=== PATIENT | female | born 1985 | race Caucasian/White ===

== ENCOUNTER 2017-12-23 02:49 | Inpatient (IN) | payer BC ==
[2017-12-23] MEDS ORDERED: OXYTOCIN 30 UNITS/LR 500 ML IV ×2 (06:00)
[2017-12-23] MEDS ORDERED: IBUPROFEN 600 MG TAB PO (06:00)
[2017-12-23] MEDS ORDERED: MISOPROSTOL 200 MCG TAB PR (06:00)
[2017-12-23] MEDS ORDERED: LIDOCAINE 1% (MPF) 30 ML INJ INJ (06:00)
[2017-12-23] MEDS ORDERED: CARBOPROST 250 MCG INJ IM (06:00)
[2017-12-23] MEDS ORDERED: BUTORPHANOL 2 MG INJ IV (06:00)
[2017-12-23] MEDS ORDERED: METHYLERGONOVINE 0.2 MG INJ IM (06:00)
[2017-12-23] MEDS: LACTATED RINGER'S 1,000 ML IV* ×4 (06:42→22:40)
[2017-12-23 06:52] LABS: ADD MAN DIFF? NO
[2017-12-23 06:56] LABS: BASOPHIL # 0.1 10^3/ul (0.0-0.1); BASOPHILS % 0.4 % (0.0-2.0); EOSINOPHILS # 0.1 10^3/ul (0.0-0.5); EOSINOPHILS % 0.9 % (0.0-7.0); HEMATOCRIT 39.4 % (37.0-47.0); HEMOGLOBIN 13.2 g/dl (12.0-16.0); LYMPHOCYTES # 1.6 10^3/ul (0.8-2.9); LYMPHOCYTES % 13.1 % (15.0-51.0); MEAN CORPUSCULAR HEMOGLOBIN 29.8 pg (29.0-33.0); MEAN CORPUSCULAR HGB CONC 33.5 g/dl (32.0-37.0); MEAN CORPUSCULAR VOLUME 88.9 fl (82.0-101.0); MEAN PLATELET VOLUME 10.8 fl (7.4-10.4); MONOCYTE # 0.9 10^3/ul (0.3-0.9); MONOCYTES % 7.4 % (0.0-11.0); NEUTROPHIL # 9.5 10^3/ul (1.6-7.5); NEUTROPHILS % 77.8 % (39.0-77.0); PLATELET COUNT 251 10^3/UL (140-415); RED BLOOD COUNT 4.43 10^6/ul (4.20-5.40); RED CELL DISTRIBUTION WIDTH 13.8 % (11.5-14.5)
[2017-12-23 06:56] LABS: WHITE BLOOD COUNT 12.2 10^3/ul (4.8-10.8)
[2017-12-23 07:14] LABS: INR 0.93; PROTIME 12.6 Sec (11.9-14.9)
[2017-12-23 07:15] LABS: PARTIAL THROMBOPLASTIN TIME 26.4 Sec (25.0-35.0)
[2017-12-23 08:06] LABS: HEPATITIS B SURFACE ANTIGEN NEGATIVE (NEGATIVE)
[2017-12-23] MEDS ORDERED: FENTAnyl 2MCG/ML-ROPIV 0.2% 100 ML (18:15)
[2017-12-23] MEDS ORDERED: NALOXONE (0.4 MG/ML) INJ IV (19:00)
[2017-12-23] MEDS: LACTATED RINGER'S 1,000 ML IV (19:10)
[2017-12-23] MEDS: FENTAnyl 2MCG/ML-ROPIV 0.2% 100 ML BAG EPI (19:10)
[2017-12-23 21:33] LABS: RAPID PLASMA REAGIN NONREACTIVE (NR)
[2017-12-24] MEDS: LACTATED RINGER'S 1,000 ML IV* ×2 (02:45→06:25)
[2017-12-24] MEDS: FENTAnyl 2MCG/ML-ROPIV 0.2% 100 ML BAG EPI (02:48)
[2017-12-24] MEDS: ACETAMINOPHEN 500 MG TAB PO (06:46)
[2017-12-24] MEDS ORDERED: EPHEDrine 50 MG INJ (07:00)
[2017-12-24] MEDS ORDERED: CHLOROPROCAINE 3% (MPF) 20 ML INJ (07:00)
[2017-12-24] MEDS ORDERED: OXYTOCIN 30 UNITS/LR 500 ML BAG IV (07:00)
[2017-12-24] MEDS: AMPICILLIN/SULB 3 GM/NS (PMX) 100 ML IVPB (07:41)
[2017-12-24] MEDS: OXYTOCIN 30 UNITS/LR 500 ML IV ×3 (08:30→13:37)
[2017-12-24] MEDS ORDERED: FENTAnyl 50 MCG/ML VIAL (11:07)
[2017-12-24] MEDS ORDERED: morphine SULFATE/PF (10 MG/10 ML) INJ (11:17)
[2017-12-24] MEDS ORDERED: ONDANSETRON 4 MG INJ (11:21)
[2017-12-24] MEDS: LACTATED RINGER'S 1,000 ML IV ×2 (11:35→23:05)
[2017-12-24] MEDS ORDERED: PHENYLephrine (100 MCG/ML) 10ML SYG (11:38)
[2017-12-24] MEDS ORDERED: KETOROLAC 30 MG INJ (11:50)
[2017-12-24] MEDS ORDERED: HYDROmorphONE 1 MG/5 ML IV SYRINGE IV ×3 (12:00)
[2017-12-24] MEDS ORDERED: KETOROLAC 30 MG INJ IV (12:00)
[2017-12-24] MEDS ORDERED: CARBOPROST 250 MCG INJ IM (12:00)
[2017-12-24] MEDS ORDERED: MISOPROSTOL 200 MCG TAB PR (12:00)
[2017-12-24] MEDS ORDERED: NALOXONE (0.4 MG/ML) INJ IV (12:00)
[2017-12-24] MEDS: IBUPROFEN 600 MG TAB PO ×2 (12:00→18:00)
[2017-12-24] MEDS: CEFAZOLIN 1 GM/50 ML (PMX) 50 ML IV ×2 (12:00→20:29)
[2017-12-24] MEDS ORDERED: ALBUTEROL 0.083% (NEB) 2.5 MG/3 ML AMP HHN (12:00)
[2017-12-24] MEDS ORDERED: ONDANSETRON 4 MG INJ IV (12:00)
[2017-12-24] MEDS ORDERED: OXYTOCIN 30 UNITS/LR 500 ML IV (12:00)
[2017-12-24] MEDS ORDERED: FENTAnyl 50 MCG/ML VIAL IV (12:00)
[2017-12-24] MEDS ORDERED: METHYLERGONOVINE 0.2 MG INJ IM (12:00)
[2017-12-24] MEDS ORDERED: HYDROmorphONE 0.5 MG/0.5 ML SYG IV ×2 (12:00)
[2017-12-24] MEDS ORDERED: DIPHENHYDRAMINE 50 MG INJ IV ×2 (12:00)
[2017-12-24] MEDS: FENTAnyl 50 MCG/ML VIAL IV ×3 (12:10→14:29)
[2017-12-24] MEDS: KETOROLAC 30 MG INJ IV (12:10)
[2017-12-24] MEDS: KETOROLAC 15 MG INJ IV (18:29)
[2017-12-25] MEDS: KETOROLAC 15 MG INJ IV ×3 (00:31→12:07)
[2017-12-25] MEDS: CEFAZOLIN 1 GM/50 ML (PMX) 50 ML IV (04:08)
[2017-12-25] MEDS: IBUPROFEN 600 MG TAB PO ×5 (06:00→23:12)
[2017-12-25] MEDS: LACTATED RINGER'S 1,000 ML IV ×3 (07:47→11:35)
[2017-12-25 09:21] LABS: HEMATOCRIT 25.9 % (37.0-47.0); HEMOGLOBIN 8.6 g/dl (12.0-16.0); MEAN CORPUSCULAR HEMOGLOBIN 30.8 pg (29.0-33.0); MEAN CORPUSCULAR HGB CONC 33.2 g/dl (32.0-37.0); MEAN CORPUSCULAR VOLUME 92.8 fl (82.0-101.0); PLATELET COUNT 187 10^3/UL (140-415); RED BLOOD COUNT 2.79 10^6/ul (4.20-5.40); RED CELL DISTRIBUTION WIDTH 14.2 % (11.5-14.5)
[2017-12-25 09:21] LABS: WHITE BLOOD COUNT 15.8 10^3/ul (4.8-10.8)
[2017-12-25 09:23] LABS: POSITIVE DIFF @See below
[2017-12-25 09:24] LABS: ADD MAN DIFF? YES
[2017-12-25 11:15] LABS: ANISOCYTOSIS 1+ (0-0); BAND NEUTROPHILS #M 3.4 10^3/ul (0.0-0.6); BAND NEUTROPHILS % (M) 22 % (0-4); BASOPHIL #M 0.1 10^3/ul (0.0-0.0); BASOPHILS % (M) 1 % (0-2); BURR CELLS 1+ (0-0); EOSINOPHILS % (M) 3 % (0-7); ERYTHROBLAST% (NRBC) (M) 1 % (0-0); LYMPHOCYTES #M 1.1 10^3/ul (0.8-2.9); LYMPHOCYTES % (M) 7 % (15-51); METAMYELOCYTES #M 0.1 10^3/ul (0.0-0.0); METAMYELOCYTES %M 1 % (0-0); MICROCYTOSIS 1+ (0-0); MONOCYTE #M 0.6 10^3/ul (0.3-0.9); MONOCYTES % (M) 4 % (0-11); PLATELET ESTIMATE NORMAL; POIKILOCYTOSIS 1+ (0-0); POLYCHROMASIA 1+ (0-0); SEG NEUT #M 10.3 10^3/ul (1.6-7.5); SEGMENTED NEUTROPHILS (M) % 62 % (39-77); SMUDGE%M 1 % (0-0)
[2017-12-25] MEDS: AMPICILLIN/SULB 3 GM/NS (PMX) 100 ML IVPB (11:50)
[2017-12-25] MEDS: HYDROCODONE/APAP (5/325) TAB PO (19:44)
[2017-12-26] MEDS: IBUPROFEN 600 MG TAB PO ×4 (05:22→23:18)
[2017-12-26] MEDS: HYDROCODONE/APAP (5/325) TAB PO (14:17)
[2017-12-27] MEDS: HYDROCODONE/APAP (5/325) TAB PO ×3 (01:26→20:21)
[2017-12-27] MEDS: IBUPROFEN 600 MG TAB PO ×3 (05:56→17:50)
[2017-12-28] MEDS: IBUPROFEN 600 MG TAB PO ×2 (00:17→06:32)
[2017-12-28] MEDS: HYDROCODONE/APAP (5/325) TAB PO ×2 (02:31→09:58)
== END 2017-12-28 11:30 | disposition home or self-care (01) | DRG 765 ==
LOC: OBT 02:49 → L-D 12-24 10:49 → PP1 12-24 15:06 → OBT 06:05 → L-D 06:07
PROVIDERS: Obstetrics & Gynecology
PROC: 10D00Z1 Extraction of Products of Conception, Low, Open Approach (ICD-10-PCS; principal; 2017-12-23)
PROC: 3E033VJ Introduction of Other Hormone into Peripheral Vein, Percutaneous Approach (ICD-10-PCS; 2017-12-23)
DX: O62.1 Secondary uterine inertia (principal); O45.93 Premature separation of placenta, unspecified, third trimester; Z3A.39 39 weeks gestation of pregnancy; Z37.0 Single live birth
CPT/HCPCS: 62319; 85025; 85610; 85730; 86592; 86850; 86900; 86901; 87340; 88307; 99464; J2400

== ENCOUNTER 2018-07-07 22:16 | Emergency (ER) | payer BC ==
[2018-07-07 23:35] LABS: ADD MAN DIFF? NO
[2018-07-07 23:36] LABS: WHITE BLOOD COUNT 9.4 10^3/ul (4.8-10.8)
[2018-07-07 23:36] LABS: BASOPHIL # 0.1 10^3/ul (0.0-0.1); BASOPHILS % 0.6 % (0.0-2.0); EOSINOPHILS # 0.3 10^3/ul (0.0-0.5); EOSINOPHILS % 3.6 % (0.0-7.0); HEMATOCRIT 37.6 % (37.0-47.0); HEMOGLOBIN 12.7 g/dl (12.0-16.0); LYMPHOCYTES # 2.3 10^3/ul (0.8-2.9); LYMPHOCYTES % 24.2 % (15.0-51.0); MEAN CORPUSCULAR HEMOGLOBIN 29.8 pg (29.0-33.0); MEAN CORPUSCULAR HGB CONC 33.8 g/dl (32.0-37.0); MEAN CORPUSCULAR VOLUME 88.3 fl (82.0-101.0); MEAN PLATELET VOLUME 9.6 fl (7.4-10.4); MONOCYTE # 0.8 10^3/ul (0.3-0.9); NEUTROPHILS % 63.3 % (39.0-77.0); PLATELET COUNT 299 10^3/UL (140-415); RED BLOOD COUNT 4.26 10^6/ul (4.20-5.40); RED CELL DISTRIBUTION WIDTH 12.3 % (11.5-14.5)
[2018-07-07 23:54] LABS: ADD UMIC YES; UR ASCORBIC ACID 40 mg/dL (NEGATIVE); UR BILIRUBIN (Dip) NEGATIVE (NEGATIVE); UR BLOOD (Dip) 3+ mg/dL (NEGATIVE); UR CLARITY SLIGHTLY CLOUDY (CLEAR); UR COLOR YELLOW (YELLOW); UR GLUCOSE (Dip) NEGATIVE (NEGATIVE); UR KETONES (Dip) 1+ mg/dL (NEGATIVE); UR LEUKOCYTE ESTERASE (Dip) TRACE Leu/ul (NEGATIVE); UR MUCUS FEW /HPF (NONE SEEN); UR NITRITE (Dip) NEGATIVE (NEGATIVE); UR RBC > 182 /HPF (0-5); UR SQUAMOUS EPITHELIAL CELL FEW /HPF (FEW); UR TOTAL PROTEIN (Dip) NEGATIVE (NEGATIVE); UR UROBILINOGEN (Dip) NEGATIVE (NEGATIVE); UR WBC 20 /HPF (0-5)
== END 2018-07-08 02:26 | disposition home or self-care (01) ==
LOC: FTE 22:16
DX: O20.0 Threatened abortion (principal); Z3A.09 9 weeks gestation of pregnancy
CPT/HCPCS: 36415; 76801; 76817; 81001; 84702; 85025; 86900; 86901; 99284-25